=== PATIENT | female | born 1960 | race Caucasian/White ===

== ENCOUNTER → 2017-06-09 | Outpatient (CLI) | payer BC ==
[~2017-06-09] MED LIST: ASPIR 8181 M1 PO; CRESTOR20 MG PO; TOPROL XL25 MG PO
== END | disposition home or self-care (01) ==
LOC: CDC 11:37
DX: Z01.810 Encounter for preprocedural cardiovascular examination (principal); M54.12 Radiculopathy, cervical region
CPT/HCPCS: 93000

== ENCOUNTER 2017-06-15 08:51 | Day surgery (SDC) | payer BC ==
[~2017-06-15] VITALS: Ht 170.2 cm; Wt 100.0 kg
[2017-06-15] MEDS ORDERED: HYDROCODON-ACE1 EAC7 PO (09:22)
[2017-06-15] MEDS ORDERED: CLONAZEPAM1 MG PO (09:23)
[2017-06-15] MEDS ORDERED: MULTI VITAMIN1 EACH PO (09:24)
[2017-06-15] MEDS ORDERED: FISH OIL 1,0001 EAC7 PO (09:24)
[2017-06-15] MEDS ORDERED: CO Q-10400 MG PO (09:25)
[2017-06-15 09:28] VITALS: BP 137/82
[2017-06-15 14:50] VITALS: BP 149/87
[2017-06-15 15:50] VITALS: BP 154/82
[2017-06-15 18:15] VITALS: BP 137/79
== END 2017-06-15 18:15 | disposition home or self-care (01) ==
LOC: SDC 08:51
PROC: 0RB30ZZ Excision of Cervical Vertebral Disc, Open Approach (ICD-10-PCS; principal; 2017-06-15)
PROC: 0RR30JZ Replacement of Cervical Vertebral Disc with Synthetic Substitute, Open Approach (ICD-10-PCS; 2017-06-15)
DX: M50.123 Cervical disc disorder at C6-C7 level with radiculopathy (principal); I10 Essential (primary) hypertension; K21.9 Gastro-esophageal reflux disease without esophagitis; I25.10 Atherosclerotic heart disease of native coronary artery without angina pectoris; E78.00 Pure hypercholesterolemia, unspecified; I25.2 Old myocardial infarction; Z79.82 Long term (current) use of aspirin; Z87.891 Personal history of nicotine dependence; Z95.5 Presence of coronary angioplasty implant and graft
CPT/HCPCS: 72040; 76000; C1713; J0690; J1100; J1170; J2250; J2405; J2550; J2710; J2765; J3010